=== PATIENT | male | born 1945 | race Caucasian/White ===

== ENCOUNTER 2019-03-02 20:32 | Emergency (ER) | payer MEDICARE ==
[~2019-03-02] VITALS: Ht 180.3 cm; Wt 95.9 kg
[2019-03-02] MEDS ORDERED: ROSU20TA5 PO (20:41)
[2019-03-02] MEDS ORDERED: LEVO75TA4 PO (20:41)
[2019-03-02] MEDS ORDERED: ECOT81TA5 PO (20:41)
[2019-03-02] MEDS ORDERED: LISI-538 PO (20:41)
[2019-03-02] MEDS ORDERED: PANT40TA3 PO (20:41)
[2019-03-02] MEDS ORDERED: TRANEXAMIC ACID 100 MG/ML 10ML VIAL XX ONE (22:30)
[2019-03-02] MEDS ORDERED: TRANEXAMIC ACID INJection 1,000 MG in NS 50 ML IV ONE (23:00)
[2019-03-03 01:05] VITALS: BP 195/81
== END 2019-03-03 01:32 | disposition home or self-care (01) ==
LOC: M ED 20:32
DX: K91.840 Postprocedural hemorrhage of a digestive system organ or structure following a digestive system procedure (principal); I10 Essential (primary) hypertension; Z79.82 Long term (current) use of aspirin; Z95.1 Presence of aortocoronary bypass graft